=== PATIENT | male | born 1975 | race Caucasian/White ===

== ENCOUNTER 2023-09-16 19:23 | Emergency (ER) | payer OTHER ==
[2023-09-16 19:41] VITALS: BP 127/91; PULSE 60; RESP 16; TEMP 98.8; BMI 32.5
[2023-09-16] MEDS ORDERED: IBUPROFEN 400 MG TABLET (FP) PO ONE (19:59)
[2023-09-16] MEDS: IBUPROFEN 400 MG TABLET (FP) PO ONE (20:00)
== END 2023-09-16 20:09 | disposition home or self-care (01) ==
LOC: FER 19:23
DX: S40.012A Contusion of left shoulder, initial encounter (principal); W20.8XXA Other cause of strike by thrown, projected or falling object, initial encounter; Y99.0 Civilian activity done for income or pay
CPT/HCPCS: 99283-25

== ENCOUNTER 2023-11-14 16:31 | Emergency (ER) | payer OTHER ==
[2023-11-14 16:37] VITALS: BP 141/96; PULSE 87; RESP 18; TEMP 98.2; BMI 32.5
[2023-11-14] MEDS ORDERED: LIDOCAINE HCL 4% TOPICAL SOLN (50 ML/BOTTLE) MM ONE (16:53)
[2023-11-14] MEDS ORDERED: ACETAMINOPHEN 500 MG TABLET (FP) ONE (17:17)
[2023-11-14] MEDS ORDERED: KETOROLAC TROMETHAMINE 30 MG/1 ML VIAL ONE (17:17)
[2023-11-14] MEDS: KETOROLAC TROMETHAMINE 30 MG/1 ML VIAL IM ONE (17:22)
[2023-11-14] MEDS: ACETAMINOPHEN 500 MG TABLET (FP) PO ONE (17:24)
[2023-11-14] MEDS ORDERED: LIDOCAINE 5% TOPICAL PATCH ONE (17:38)
[2023-11-14] MEDS: LIDOCAINE 5% TOPICAL PATCH TP ONE (17:46)
[2023-11-14] MEDS ORDERED: LIDOCAINE PATCH REMOVAL MC SCH (22:00)
== END 2023-11-14 18:11 | disposition home or self-care (01) ==
LOC: FER 16:31
PROC: 3E0233Z Introduction of Anti-inflammatory into Muscle, Percutaneous Approach (ICD-10-PCS; principal; 2023-11-14)
DX: M25.511 Pain in right shoulder (principal); M25.512 Pain in left shoulder; M54.50 Low back pain, unspecified; X50.0XXA Overexertion from strenuous movement or load, initial encounter
CPT/HCPCS: 99284-25